=== PATIENT | male | born 1940 | race Caucasian/White ===

== ENCOUNTER 2020-02-16 10:41 | Observation (INO) | payer MEDICARE, BC ==
[2020-02-16 11:53] LABS: ABSOLUTE EOSINOPHILS # (AUTO) 0.1 10^3/uL (0.0-0.6); ABSOLUTE LYMPHOCYTES (AUTO) 0.7 10^3/uL (0.5-4.7); ABSOLUTE MONOCYTES (AUTO) 0.6 10^3/uL (0.1-1.4); ABSOLUTE NEUT (AUTO) 7.4 10^3/uL (1.7-8.2); BASOPHILS % (AUTO) 0.5 % (0-2); EOSINOPHILS % (AUTO) 0.6 % (0-6); HEMATOCRIT 38.6 % (37.9-51.0); HEMOGLOBIN 13.2 g/dL (13.5-17.0); LYMPHOCYTES % (AUTO) 8.4 % (13-45); MEAN CORPUSCULAR HEMOGLOBIN 32.9 pg (27.0-33.4); MEAN CORPUSCULAR HGB CONC 34.1 g/dL (32.0-36.0); MEAN CORPUSCULAR VOLUME 97 fl (80-97); MONOCYTES % (AUTO) 6.7 % (3-13); PLATELET COUNT 167 10^3/uL (150-450); RED CELL DISTRIBUTION WIDTH 13.8 % (11.5-14.0); SEGMENTED NEUTROPHILS % (AUTO) 83.8 % (42-78); TOTAL CELLS COUNTED % (AUTO) 100 %; WHITE BLOOD COUNT 8.8 10^3/uL (4.0-10.5)
[2020-02-16 11:57] LABS: ALBUMIN 3.6 g/dL (3.5-5.0); ALKALINE PHOSPHATASE 54 U/L (38-126); ANION GAP 13 (5-19); ASPARTATE AMINO TRANSFERASE 36 U/L (17-59); BILIRUBIN,DIRECT 0.4 mg/dL (0.0-0.4); BILIRUBIN,TOTAL 1.1 mg/dL (0.2-1.3); BLOOD UREA NITROGEN 13 mg/dL (7-20); CARBON DIOXIDE 20 mmol/L (22-30); CHLORIDE 107 mmol/L (98-107); GLUCOSE 129 mg/dL (75-110); POTASSIUM 3.6 mmol/L (3.6-5.0); TOTAL PROTEIN 6.1 g/dL (6.3-8.2)
--- NOTE | 2020-02-16 12:17 | ER Document Report ---
ED General - General Chief Complaint: Seizure Stated Complaint: ALTERED MENTAL STATUS Time Seen by Provider: 02/16/20 11:48 - HPI Onset: Just prior to arrival Notes: Patient is an 79-year-old male with a past medical history of dementia who presents with an episode of altered mental status. Patient is here with his who is also his caregiver. provides the history. She states that he has had episodes of seizure-like activity for several months. He has them daily. They last under 5 minutes. He has seen a neurologist in [facility] and has had a MRI and EEG. They are attributing these episodes to dementia and not seizures. He is not on any seizure medication. Patient's states that he felt fine yesterday and was in his normal state of health. Today, she was getting ready for work and he was sitting on the edge of the bathtub. She states that he was acting strange and confused about putting on his pants. He then became agitated and fell backwards and hit his head on the table. He then had less than 5 minutes of bilateral shaking. EMS was called. Patient was combative after this so they gave him Ativan. Currently, patient is resting but responds to painful stimuli. - Related Data Allergies/Adverse Reactions: No Known Allergies Allergy (Unverified 02/16/20 12:13) Past Medical History - General Information source: Relative - Social History Smoking Status: Unknown if Ever Smoked Family History: Reviewed & Not Pertinent Patient has homicidal ideation: No Review of Systems - Review of Systems -: Yes ROS unobtainable due to patient's medical condition Physical Exam - Vital signs Vitals: Resp 12 02/16/20 10:45 - Notes Notes: VITAL SIGNS: Within normal limits. GENERAL: No acute distress, non-toxic appearance. Sedated vs post-ictal on exam but is arousable to painful stimuli. HEAD: Ecchymosis and slight abrasion on posterior head. No laceration. No bleeding. EYES: Conjunctiva normal, no discharge. EARS: Hearing grossly intact. NOSE: Normal. NECK: Normal range of motion, no tenderness, supple, no lymphadenopathy, No adenopathy, no JVD. CHEST: Clear breath sounds bilaterally. No wheezes, rales, or rhonchi. CARDIAC: Regular rate and rhythm. S1 and S2, without murmurs, gallops, or rubs. VASCULAR: No Edema. Peripheral pulses normal and equal in all extremities. ABDOMEN: Normal and soft with no tenderness GENITOURINARY: Normal, No tenderness LYMPATHTIC: No lymphadenopathy noted. MUSCULOSKELETAL: Extremities without clubbing, cyanosis or edema. NEUROLOGICAL: Post-ictal vs sedation from ativan SKIN: Normal appearance with no rashes or lesions. Course - Re-evaluation Re-evalutation: 02/16/20 18:[address] head and cervical spine are unremarkable. His lab work was also reviewed. This episode was slightly different than his usual episodes of shaking. He has already been worked up for seizures by neurology. Patient continues to be fatigued on exam but more responsive. He has not been his baseline mental status per the since the episode. I did offer admission and she was in agreement. Patient will be admitted to the hospitalist floor. - Vital Signs Vital signs: Temp Pulse Resp BP Pulse Ox 98.5 F 22 H 167/60 H 98 02/16/20 10:55 02/16/20 18:00 02/16/20 13:04 02/16/20 18:00 - Laboratory Result Diagrams: 02/16/20 10:52 02/16/20 10:52 Laboratory results interpreted by me: 02/16/20 02/16/20 10:52 10:52 RBC 4.00 L Hgb 13.2 L Lymph % (Auto) 8.4 L Seg Neutrophils % 83.8 H Carbon Dioxide 20 L Glucose 129 H Total Protein 6.1 L - Diagnostic Test Radiology reviewed: Image reviewed - EKG Interpretation by Me EKG shows normal: Sinus rhythm Rate: Normal When compared to previous EKG there are: Previous EKG unavailable Additional EKG results interpreted by me: 02/16/20 16:47 EKG interpreted by me. QTc 502. Apparent complex. Ventricular bigeminy. No acute ST changes. Discharge - Discharge Clinical Impression: Altered mental status Qualifiers: Altered mental status type: unspecified Qualified Code(s): R41.82 - Altered mental status, unspecified Disposition: ADMITTED INPATIENT Admitting Provider: Kassandra (Hospitalist) Unit Admitted: [facility]
--- NOTE | 2020-02-16 12:52 | RADIOLOGY REPORT (SQ) ---
EXAM DESCRIPTION: CT HEAD WITHOUT IMAGES COMPLETED DATE/TIME: 02/16/2020 12:44 pm REASON FOR STUDY: AMS, Seizure, hit posterior aspect of head COMPARISON: None. TECHNIQUE: Axial images acquired through the brain without intravenous contrast. Images reviewed wi th bone, brain and subdural windows. Additional sagittal and coronal reconstructions were generated. Images stored on PACS. All CT scanners at this facility use dose modulation, iterative reconstruction, and/or weight based d osing when appropriate to reduce radiation dose to as low as reasonably achievable (ALARA). [facility]: Dose Right [facility]: CareDose [facility]: Dose Right [facility]: Teradose 4D [facility]: Drybar RADIATION DOSE: CT Rad equipment meets quality standard of care and radiation dose reduction techniq ues were employed. CTDIvol: 53.2 mGy. DLP: 1070 mGy-cm. mGy. LIMITATIONS: None. FINDINGS: VENTRICLES: Prominent. CEREBRUM: No masses. No hemorrhage. No midline shift. Areas of low density in the white matter mos t likely due to chronic micro-vascular ischemic change. No evidence for acute infarction. CEREBELLUM: No masses. No hemorrhage. No alteration of density. No evidence for acute infarction. EXTRAAXIAL SPACES: Mild age-related involutional change. No fluid collections. No masses. ORBITS AND GLOBE: No intra- or extraconal masses. Normal contour of globe without masses. CALVARIUM: No fracture. PARANASAL SINUSES: No fluid or mucosal thickening. SOFT TISSUES: No mass or hematoma. OTHER: No other significant finding. IMPRESSION: MILD CHRONIC CHANGES OF ATROPHY AND MICROVASCULAR ISCHEMIA. NO ACUTE PROCESS. EVIDENCE OF ACUTE STROKE: NO. TECHNICAL DOCUMENTATION: JOB ID: [id number] Quality ID # [id number]: Final reports with documentation of one or more dose reduction techniques (e.g., Au tomated exposure control, adjustment of the mA and/or kV according to patient size, use of iterative reconstruction technique) 2010 [employer]- All Rights Reserved Reading location - IP/workstation name: [email or web address]
--- NOTE | 2020-02-16 12:55 | RADIOLOGY REPORT (SQ) ---
EXAM DESCRIPTION: CT CERVICAL SPINE WITHOUT IMAGES COMPLETED DATE/TIME: 02/16/2020 12:44 pm REASON FOR STUDY: head injury COMPARISON: None. TECHNIQUE: Axial images acquired through the cervical spine without intravenous contrast. Images re viewed with lung, soft tissue and bone windows. Reconstructed coronal and sagittal MPR images review ed. Images stored on PACS. All CT scanners at this facility use dose modulation, iterative reconstruction, and/or weight based d osing when appropriate to reduce radiation dose to as low as reasonably achievable (ALARA). [facility]: Dose Right [facility]: CareDose [facility]: Dose Right [facility]: Teradose 4D [facility]: [employer] RADIATION DOSE: CT Rad equipment meets quality standard of care and radiation dose reduction techniq ues were employed. CTDIvol: 19.3 mGy. DLP: 374 mGy-cm. mGy. LIMITATIONS: None. FINDINGS: ALIGNMENT: Anatomic. MINERALIZATION: Normal. VERTEBRAL BODIES: No fractures or dislocation. DISCS: There is disc space narrowing from C4-C7. No significant marginal osteophytes are present. FACETS, LATERAL MASSES, POSTERIOR ELEMENTS: Hypertrophic facet changes, left more than right. HARDWARE: None in the spine. VISUALIZED RIBS: No fractures. LUNG APICES AND SOFT TISSUES: No significant or acute findings. OTHER: No other significant finding. IMPRESSION: Degenerative disc disease. Facet arthropathy. No acute finding. TECHNICAL DOCUMENTATION: JOB ID: [id number] Quality ID # [id number]: Final reports with documentation of one or more dose reduction techniques (e.g., Au tomated exposure control, adjustment of the mA and/or kV according to patient size, use of iterative reconstruction technique) 2010 [employer]- All Rights Reserved Reading location - IP/workstation name: [email or web address]
[2020-02-16] MEDS ORDERED: NORMAL SALINE 1000 ML 1,000 ML IV ONE (14:56)
--- NOTE | 2020-02-16 15:22 | RADIOLOGY REPORT (SQ) ---
EXAM DESCRIPTION: CHEST SINGLE VIEW IMAGES COMPLETED DATE/TIME: 02/16/2020 3:14 pm REASON FOR STUDY: AMS COMPARISON: None. EXAM PARAMETERS: NUMBER OF VIEWS: One view. TECHNIQUE: Single frontal radiographic view of the chest acquired. RADIATION DOSE: NA LIMITATIONS: Low lung volumes. FINDINGS: LUNGS AND PLEURA: Left basilar atelectasis. Findings are accentuated by low lung volumes. No pneumothorax. No effusions. MEDIASTINUM AND HILAR STRUCTURES: No masses. Contour normal. HEART AND VASCULAR STRUCTURES: Mild cardiac enlargement. No overt failure. BONES: No acute findings. HARDWARE: None in the chest. OTHER: No other significant finding. IMPRESSION: Left basilar atelectasis. No focal consolidation or failure. TECHNICAL DOCUMENTATION: JOB ID: [id number] 2010 [employer]- All Rights Reserved Reading location - IP/workstation name: [email or web address]
[2020-02-16] MEDS ORDERED: ONDANSETRON HCL INJ/PF 4 MG/2 ML SDV IV PRN (16:39)
[2020-02-16] MEDS ORDERED: OXYCODONE-ACETAMINOPHEN 5-325 MG TABLET PO PRN (16:39)
[2020-02-16] MEDS ORDERED: NORMAL SALINE 1000 ML 1,000 ML IV PRN (16:39)
[2020-02-16] MEDS ORDERED: HYDRALAZINE HCL INJ/PF 20 MG/1 ML SDV IV PRN (16:42)
[2020-02-16] MEDS ORDERED: LORAZEPAM INJ 2 MG/1 ML VIAL IV PRN (16:43)
--- NOTE | 2020-02-16 16:51 | PDOC H&P ---
History of Present Illness Admission Date/PCP: 02/16/2020 Patient complains of: Altered mental status History of Present Illness: OPAL ALEJANDRE JR is a 79 year old male with history of dementia, hypertension brought in by family members for altered mental status. Patient was combative agitated when the EMS picked him up. They gave him 1 mg IV Ativan patient was lethargic less responsive in the ER will repeat a few hours. Patient has questionable history of seizures follows with a neurologist in [place] as per the family EEG is negative for seizure activity, MRI is negative for abn ormality. The impression from the neurologist is seizures are very unlikely and patient has advanced dementia. No seizure activity was noted in the emergency room. At the time of my examination patient is awake and has a difficulty in hearing able to give me his first name and last name. Patient family agreed to keep him in the hospital overnight for observation. CODE STATUS is full code. Past Medical History Cardiac Medical History: Reports: Hypertension Psychiatric Medical History: Reports: Dementia Past Surgical History Past Surgical History: Reports: Other - Multiple surgeries for kidney stones as per the family members. Social History Information Source: Legal Guardian Lives with: Family Smoking Status: Unknown if Ever Smoked Electronic Cigarette use?: No Hx Recreational Drug Use: No Hx Prescription Drug Abuse: No - Advance Directive Resuscitation Status: Full Code Family History Parental Family History Reviewed: Yes - Hypertension Children Family History Reviewed: Yes Sibling(s) Family History Reviewed.: Yes Medication/Allergy Allergies/Adverse Reactions: No Known Allergies Allergy (Unverified 02/16/20 12:13) Review of Systems Constitutional: PRESENT: fatigue, weakness. ABSENT: fever(s), headache(s) Eyes: ABSENT: visual disturbances Ears: ABSENT: hearing changes Nose, Mouth, and Throat: ABSENT: sore throat Cardiovascular: ABSENT: dyspnea on exertion, orthropnea, palpitations Respiratory: ABSENT: dyspnea, hemoptysis Gastrointestinal: ABSENT: coffee ground emesis, diarrhea, heartburn Integumentary: ABSENT: rash, wounds Neurological: PRESENT: abnormal movements, confusion, weakness Psychiatric: PRESENT: anxiety. ABSENT: depression, homidical ideation, suicidal ideation Physical Exam Vital Signs: Temp Pulse Resp BP Pulse Ox 98.5 F 19 167/60 H 98 02/16/20 10:55 02/16/20 13:04 02/16/20 13:04 02/16/20 13:04 Intake & Output 02/15/20 02/16/20 02/17/20 06:59 06:59 06:59 Weight 65 kg General appearance: PRESENT: no acute distress, cooperative - Early male looks confused and agitated., other Head exam: PRESENT: atraumatic Eye exam: PRESENT: conjunctiva pale, PERRLA Mouth exam: PRESENT: moist, tongue midline Teeth exam: PRESENT: poor dentation Neck exam: ABSENT: carotid bruit, JVD, lymphadenopathy, thyromegaly Respiratory exam: PRESENT: decreased breath sounds Cardiovascular exam: PRESENT: RRR. ABSENT: diastolic murmur, rubs, systolic mur mur GI/Abdominal exam: PRESENT: normal bowel sounds, soft. ABSENT: distended, guarding, mass, organolmegaly, rebound, tenderness Rectal exam: PRESENT: deferred Extremities exam: PRESENT: full ROM. ABSENT: calf tenderness, clubbing, pedal edema Neurological exam: PRESENT: alert, awake. ABSENT: motor sensory deficit Psychiatric exam: PRESENT: agitated, anxious Results Laboratory Results: 02/16/20 10:52 02/16/20 10:52 02/16/20 02/16/20 10:52 10:52 WBC 8.8 RBC 4.00 L Hgb 13.2 L Hct 38.6 MCV 97 MCH 32.9 MCHC 34.1 RDW 13.8 Plt Count 167 Seg Neutrophils % 83.8 H Sodium 139.9 Potassium 3.6 Chloride 107 Carbon Dioxide 20 L Anion Gap 13 BUN 13 Creatinine 0.97 Est GFR ( Amer) > 60 Glucose 129 H Calcium 9.0 Total Bilirubin 1.1 AST 36 Alkaline Phosphatase 54 Total Protein 6.1 L Albumin 3.6 02/16/20 02/16/20 10:52 10:52 Creatine Kinase 145 Troponin I 0.032 Impressions: Head CT 02/16/20 00:00 IMPRESSION: MILD CHRONIC CHANGES OF ATROPHY AND MICROVASCULAR ISCHEMIA. NO ACUTE PROCESS. EVIDENCE OF ACUTE STROKE: NO. Cervical Spine CT 02/16/20 12:09 IMPRESSION: Degenerative disc disease. Facet arthropathy. No acute finding. Chest X-Ray 02/16/20 14:26 IMPRESSION: Left basilar atelectasis. No focal consolidation or failure. Assessment and Plan - Diagnosis (1) Altered mental status Is this a current diagnosis for this admission?: Yes Plan: 02/16/2020-patient is going to be admitted to [facility] with a diagnosis of altered mental status. Admitted in stage W observation. Aspiration fall seizure precautions requested. To restart his home medications. GI prophylaxis DVT prophylaxis initiated. CT head is negative, chest x-ray is normal, cervical spine x-ray is normal. (2) Dementia Is this a current diagnosis for this admission?: No Plan: 02/22/2020-patient has history of advanced dementia. Follows with a neurologist in [place]. Started on Aricept 5 mg p.o. nightly. (3) HTN (hypertension) Is this a current diagnosis for this admission?: No Plan: 02/16/2020-patient has history of chronic essential hypertension. Blood p ressures are stable in the emergency room. Started on IV hydralazine 10 mg every 6 hours as needed for systolic blood pressure less than 170. - Time Anticipated Discharge Disposition: Home, Self Care Anticipated Discharge Timeframe: within 24 hours
--- NOTE | 2020-02-16 19:50 | EKG REPORT ---
SEVERITY:- ABNORMAL ECG - SINUS RHYTHM VENTRICULAR BIGEMINY AND APC ABERRANT COMPLEX, POSSIBLY SUPRAVENTRICULAR BORDERLINE LEFT AXIS DEVIATION BORDERLINE REPOL ABNORMALITY, ANT-LAT LEADS : Confirmed by: Patti Diggs 16-Feb-2020 19:49:42
[2020-02-16 21:28] LABS: APPEARANCE,URINE CLEAR; BILIRUBIN,URINE NEGATIVE (NEGATIVE); COLOR,URINE YELLOW; GLUCOSE, URINE NEGATIVE (NEGATIVE); KETONES,URINE TRACE mg/dL (NEGATIVE); LEUKOCYTE ESTERASE,URINE NEGATIVE (NEGATIVE); NITRITE,URINE NEGATIVE (NEGATIVE); PROTEIN,URINE 100 mg/dL (NEGATIVE); URINE SPECIFIC GRAVITY 1.016; UROBILINOGEN,URINE NEGATIVE mg/dL (<2.0)
[2020-02-16] MEDS ORDERED: DONEPEZIL HCL 5 MG TABLET PO SCH (22:00)
[2020-02-16] MEDS: HEPARIN SOD (PORCINE) 5,000 UNIT/ML 1 ML VIAL SUBCUT SCH (22:39)
[2020-02-16 23:14] LABS: INTERNATIONAL RATION (INR) 1.08; PROTHROMBIN TIME 14.2 SEC (11.4-15.4)
[2020-02-17] MEDS ORDERED: HALOPERIDOL LACTATE INJ 5 MG/1 ML VIAL ONE (02:05)
[2020-02-17 04:33] LABS: ALBUMIN 3.5 g/dL (3.5-5.0); ALKALINE PHOSPHATASE 71 U/L (38-126); ASPARTATE AMINO TRANSFERASE 46 U/L (17-59); BILIRUBIN,DIRECT 0.3 mg/dL (0.0-0.4); BILIRUBIN,TOTAL 1.5 mg/dL (0.2-1.3); BLOOD UREA NITROGEN 10 mg/dL (7-20); CALCIUM 8.9 mg/dL (8.4-10.2); CARBON DIOXIDE 21 mmol/L (22-30); CHLORIDE 104 mmol/L (98-107); GLUCOSE 110 mg/dL (75-110); TOTAL PROTEIN 5.8 g/dL (6.3-8.2)
[2020-02-17 04:43] LABS: PROTHROMBIN TIME 14.5 SEC (11.4-15.4)
[2020-02-17 04:44] LABS: DIRECT LDL 59 mg/dL (<100)
[2020-02-17 04:47] LABS: ANION GAP 13 (5-19); TRIGLYCERIDES 95 mg/dL (<150)
[2020-02-17 04:59] LABS: POTASSIUM 2.9 mmol/L (3.6-5.0)
[2020-02-17] MEDS: HEPARIN SOD (PORCINE) 5,000 UNIT/ML 1 ML VIAL SUBCUT SCH (05:45)
[2020-02-17 05:58] LABS: ABSOLUTE LYMPHOCYTES (AUTO) 1.5 10^3/uL (0.5-4.7); ABSOLUTE MONOCYTES (AUTO) 1.4 10^3/uL (0.1-1.4); ABSOLUTE NEUT (AUTO) 7.7 10^3/uL (1.7-8.2); BASOPHILS % (AUTO) 0.2 % (0-2); EOSINOPHILS % (AUTO) 0.1 % (0-6); HEMATOCRIT 38.9 % (37.9-51.0); HEMOGLOBIN 13.6 g/dL (13.5-17.0); LYMPHOCYTES % (AUTO) 13.8 % (13-45); MEAN CORPUSCULAR HEMOGLOBIN 32.7 pg (27.0-33.4); MONOCYTES % (AUTO) 13.4 % (3-13); PLATELET COUNT 172 10^3/uL (150-450); RED BLOOD COUNT 4.16 10^6/uL (4.35-5.55); RED CELL DISTRIBUTION WIDTH 13.6 % (11.5-14.0); SEGMENTED NEUTROPHILS % (AUTO) 72.5 % (42-78); TOTAL CELLS COUNTED % (AUTO) 100 %; WHITE BLOOD COUNT 10.7 10^3/uL (4.0-10.5)
[2020-02-17] MEDS ORDERED: HALOPERIDOL LACTATE INJ 5 MG/1 ML VIAL IM ONE (06:00)
[2020-02-17] MEDS ORDERED: PANTOPRAZOLE SODIUM 20 MG TABLET.DR PO SCH (06:00)
[2020-02-17 06:02] LABS: MEAN CORPUSCULAR VOLUME 94 fl (80-97)
[2020-02-17 06:20] LABS: ALBUMIN 3.5 g/dL (3.5-5.0); ALKALINE PHOSPHATASE 64 U/L (38-126); ANION GAP 11 (5-19); ASPARTATE AMINO TRANSFERASE 49 U/L (17-59); BILIRUBIN,DIRECT 0.4 mg/dL (0.0-0.4); BILIRUBIN,TOTAL 1.3 mg/dL (0.2-1.3); BLOOD UREA NITROGEN 9 mg/dL (7-20); CALCIUM 9.2 mg/dL (8.4-10.2); CARBON DIOXIDE 20 mmol/L (22-30); CHLORIDE 107 mmol/L (98-107); GLUCOSE 104 mg/dL (75-110); POTASSIUM 3.1 mmol/L (3.6-5.0)
[2020-02-17] MEDS ORDERED: POTASSIUM CHLORIDE 10 MEQ TABLET.ER PO ONE (08:09)
[2020-02-17] MEDS ORDERED: HYDRALAZINE HCL INJ/PF 20 MG/1 ML SDV IV PRN (08:53)
[2020-02-17] MEDS ORDERED: PROPRANOLOL HCL 20 MG TABLET PO SCH ×2 (10:00)
[2020-02-17] MEDS ORDERED: SERTRALINE HCL 50 MG TABLET PO SCH (10:00)
[2020-02-17] MEDS ORDERED: BUSPIRONE HCL 10 MG TABLET PO SCH ×2 (10:00)
[2020-02-17] MEDS ORDERED: (PENDING PHARMACY ID) (Donepezil Hcl [Donepezil Hcl] 10 MG) PO SCH (10:00)
[2020-02-17] MEDS ORDERED: LISINOPRIL 5 MG TABLET PO SCH (10:00)
[2020-02-17] MEDS ORDERED: POTASSIUM CHLORIDE 10 MEQ TABLET.ER PO SCH (10:00)
[2020-02-17] MEDS ORDERED: TAMSULOSIN HCL 0.4 MG CAP.SR.24H PO SCH (10:00)
[2020-02-17] MEDS ORDERED: HYDROXYZINE HCL 10 MG TABLET PO SCH (10:00)
[2020-02-17] MEDS ORDERED: (PENDING PHARMACY ID) (Buspirone Hcl [Buspirone Hcl] 1 TAB) PO SCH (10:00)
[2020-02-17] MEDS ORDERED: DONEPEZIL HCL 5 MG TABLET PO SCH (10:00)
--- NOTE | 2020-02-17 10:00 | PDOC DISCHARGE SUMMARY ---
Impression - Admit/DC Date/PCP Admission Date/Primary Care Provider: 02/16/20 16:39 Discharge Date: 02/17/20 - Discharge Diagnosis (1) Altered mental status Is this a current diagnosis for this admission?: Yes (2) Dementia Is this a current diagnosis for this admission?: Yes (3) HTN (hypertension) Is this a current diagnosis for this admission?: Yes - Additional Information Resuscitation Status: Full Code Discharge Diet: Cardiac Discharge Activity: Balance Activity w/Rest Prescriptions: Lisinopril [Prinivil 5 mg Tablet] 5 mg PO DAILY #30 tablet Home Medications: Atorvastatin Calcium [Lipitor 40 mg Tablet] 40 mg PO QHS 02/16/20 Donepezil HCl 10 mg PO DAILY 02/16/20 Hydroxyzine HCl [Atarax 10 mg Tablet] 10 mg PO TID PRN 02/16/20 Potassium Chloride 20 meq PO DAILY 02/16/20 Propranolol HCl [Inderal 20 mg Tablet] 20 mg PO Q12 02/16/20 Sertraline HCl 100 mg PO DAILY 02/16/20 Tamsulosin HCl [Flomax 0.4 mg Cap.sr] 0.4 mg PO DAILY 02/16/20 Buspirone HCl 1 tab PO BID #0 02/17/20 Lisinopril [Prinivil 5 mg Tablet] 5 mg PO DAILY #30 tablet 02/17/20 History of Present Illiness History of Present Illness: OPAL ALEJANDRE JR is a 79 year old male with history of dementia, hypertension brought in by family members for altered mental status. Patient was combative agitated when the EMS picked him up. They gave him 1 mg IV Ativan patient was lethargic less responsive in the ER will repeat a few hours. Patient has questionable history of seizures follows with a neurologist in [place] as per the family EEG is negative for seizure activity, MRI is negative for abnormality. The impression from the neurologist is seizures are very unlikely and patient has advanced dementia. No seizure activity was noted in the emerge ncy room. At the time of my examination patient is awake and has a difficulty in hearing able to give me his first name and last name. Patient family agreed to keep him in the hospital overnight for observation. CODE STATUS is full code. Hospital Course Hospital Course: Unremarkable hospital course. Patient sleepy this morning. Seen by physical therapy. Walked 90 feet with contact-guard assist using a walker. Spoke to the patient's . He tends to get upset over not with her. We discussed the situation and as is common for dementia patients it is likely more benefit to have him home in his home situation where he is comfortable as opposed to additional nights in the hospital. Physical Exam Vital Signs: Temp Pulse Resp BP Pulse Ox 98.9 F 56 L 23 H 160/59 H 91 L 02/17/20 07:40 02/17/20 07:40 02/17/20 08:00 02/17/20 07:40 02/17/20 07:40 Intake & Output 02/16/20 02/17/20 02/18/20 06:59 06:59 06:59 Intake Total 1000 Output Total 200 Balance 800 Weight 66.1 kg General appearance: PRESENT: no acute distress, hard of hearing, well-developed Head exam: PRESENT: atraumatic, normocephalic Respiratory exam: PRESENT: clear to auscultation edmundo, symmetrical, unlabored. ABSENT: rales, rhonchi, tachypnea, wheezes Cardiovascular exam: PRESENT: RRR, +S1, +S2, systolic murmur - 3/6. ABSENT: bradycardia, diastolic murmur, irregular rhythm, tachycardia GI/Abdominal exam: PRESENT: normal bowel sounds, soft. ABSENT: distended, guarding, tenderness Rectal exam: PRESENT: deferred Gentrourinary exam: ABSENT: indwelling catheter Extremities exam: ABSENT: calf tenderness, joint swelling, pedal edema Musculoskeletal exam: PRESENT: ambulatory, normal inspection. ABSENT: deformity, dislocation Neurological exam: PRESENT: alert, awake, oriented to person, oriented to place Psychiatric exam: PRESENT: flat affect. ABSENT: agitated, anxious Results Laboratory Results: WBC 10.7 10^3/uL (4.0-10.5) H 02/17/20 05:13 RBC 4.16 10^6/uL (4.35-5.55) L 02/17/20 05:13 Hgb 13.6 g/dL (13.5-17.0) 02/17/20 05:13 Hct 38.9 % (37.9-51.0) 02/17/20 05:13 MCV 94 fl (80-97) 02/17/20 05:13 MCH 32.7 pg (27.0-33.4) 02/17/20 05:13 MCHC 35.0 g/dL (32.0-36.0) 02/17/20 05:13 RDW 13.6 % (11.5-14.0) 02/17/20 05:13 Plt Count 172 10^3/uL (150-450) 02/17/20 05:13 Lymph % (Auto) 13.8 % (13-45) 02/17/20 05:13 [place] % (Auto) 13.4 % (3-13) H 02/17/20 05:13 Eos % (Auto) 0.1 % (0-6) 02/17/20 05:13 Baso % (Auto) 0.2 % (0-2) 02/17/20 05:13 Absolute Neuts (auto) 7.7 10^3/uL (1.7-8.2) 02/17/20 05:13 Absolute Lymphs (auto) 1.5 10^3/uL (0.5-4.7) 02/17/20 05:13 Absolute Monos (auto) 1.4 10^3/uL (0.1-1.4) 02/17/20 05:13 Absolute Eos (auto) 0.0 10^3/uL (0.0-0.6) 02/17/20 05:13 Absolute Basos (auto) 0.0 10^3/uL (0.0-0.2) 02/17/20 05:13 Seg Neutrophils % 72.5 % (42-78) 02/17/20 05:13 Platelet Estimate Cancelled 02/17/20 04:07 PT 14.5 SEC (11.4-15.4) 02/17/20 04:07 INR 1.10 02/17/20 04:07 Sodium 137.5 mmol/L (137-145) 02/17/20 05:13 Potassium 3.1 mmol/L (3.6-5.0) L 02/17/20 05:13 Chloride 107 mmol/L (98-107) 02/17/20 05:13 Carbon Dioxide 20 mmol/L (22-30) L 02/17/20 05:13 Anion Gap 11 (5-19) 02/17/20 05:13 BUN 9 mg/dL (7-20) 02/17/20 05:13 Creatinine 0.80 mg/dL (0.52-1.25) 02/17/20 05:13 Est GFR ( Amer) > 60 (>60) 02/17/20 05:13 Est GFR (MDRD) Non-Af > 60 (>60) 02/17/20 05:13 Glucose 104 mg/dL (75-110) 02/17/20 05:13 Hemoglobin A1c % 5.0 % (4.7-6.0) 02/17/20 04:07 Calcium 9.2 mg/dL (8.4-10.2) 02/17/20 05:13 Magnesium 1.7 mg/dL (1.6-2.3) 02/17/20 04:07 Total Bilirubin 1.3 mg/dL (0.2-1.3) 02/17/20 05:13 Direct Bilirubin 0.4 mg/dL (0.0-0.4) 02/17/20 05:13 Neonat Total Bilirubin Not Reportable 02/17/20 05:13 Neonat Direct Bilirubin Not Reportable 02/17/20 05:13 Neonat Indirect Bili Not Reportable 02/17/20 05:13 AST 49 U/L (17-59) 02/17/20 05:13 ALT 31 U/L (<50) 02/17/20 05:13 Alkaline Phosphatase 64 U/L (38-126) 02/17/20 05:13 Creatine Kinase 145 U/L (55-170) 02/16/20 10:52 Troponin I 0.032 ng/mL 02/16/20 10:52 Total Protein 6.0 g/dL (6.3-8.2) L 02/17/20 05:13 Albumin 3.5 g/dL (3.5-5.0) 02/17/20 05:13 Triglycerides 95 mg/dL (<150) 02/17/20 04:07 Cholesterol 137.50 mg/dL (0-200) 02/17/20 04:07 LDL Cholesterol Direct 59 mg/dL (<100) 02/17/20 04:07 VLDL Cholesterol 19.0 mg/dL (10-31) 02/17/20 04:07 HDL Cholesterol 66 mg/dL (>40) 02/17/20 04:07 Lipase 82.8 U/L (23-300) 02/17/20 04:07 TSH 3.27 uIU/mL (0.47-4.68) 02/17/20 04:07 Urine Color YELLOW 02/16/20 15:42 Urine Appearance CLEAR 02/16/20 15:42 Urine pH 6.0 (5.0-9.0) 02/16/20 15:42 Ur Specific [place] 1.016 02/16/20 15:42 Urine Protein 100 mg/dL (NEGATIVE) H 02/16/20 15:42 Urine Glucose (UA) NEGATIVE mg/dL (NEGATIVE) 02/16/20 15:42 Urine Ketones TRACE mg/dL (NEGATIVE) H 02/16/20 15:42 Urine Blood SMALL (NEGATIVE) H 02/16/20 15:42 Urine Nitrite NEGATIVE (NEGATIVE) 02/16/20 15:42 Urine Bilirubin NEGATIVE (NEGATIVE) 02/16/20 15:42 Urine Urobilinogen NEGATIVE mg/dL (<2.0) 02/16/20 15:42 Ur Leukocyte Esterase NEGATIVE (NEGATIVE) 02/16/20 15:42 Urine WBC (Auto) 1 /HPF 02/16/20 15:42 Urine RBC (Auto) 4 /HPF 02/16/20 15:42 Urine Mucus (Auto) OCC /LPF 02/16/20 15:42 Urine Ascorbic Acid NEGATIVE (NEGATIVE) 02/16/20 15:42 Slides for Path Review Cancelled 02/17/20 04:07 02/16/20 10:52 Troponin I 0.032 Impressions: Head CT 02/16/20 00:00 IMPRESSION: MILD CHRONIC CHANGES OF ATROPHY AND MICROVASCULAR ISCHEMIA. NO ACUTE PROCESS. EVIDENCE OF ACUTE STROKE: NO. Cervical Spine CT 02/16/20 12:09 IMPRESSION: Degenerative disc disease. Facet arthropathy. No acute finding. Chest X-Ray 02/16/20 14:26 IMPRESSION: Left basilar atelectasis. No focal consolidation or failure. Plan Health Concerns: Episodes of shaking possibly related to anxiety with underlying dementia. Possibly triggered by frustration at times. Plan of Treatment: Add BuSpar 5 mg twice daily to the regimen of Atarax 10 mg 3 times a day, sertraline 100 mg daily and Aricept 10 mg daily. Resume potassium chloride for hypokalemia Resume atenolol and add lisinopril 5 mg daily for hypertension. Goals: Improved blood pressure control. Further characterization and better control of shaking episodes. Time Spent: Greater than 30 Minutes Stroke Is this a Stroke Patient?: No Acute Heart Failure Is this a Heart Failure Patient?: No
[2020-02-17 12:24] VITALS: BP 140/50
--- NOTE | 2020-02-17 19:46 | EKG REPORT ---
SEVERITY:- ABNORMAL ECG - SINUS RHYTHM BORDERLINE LEFT AXIS DEVIATION REPOL ABNRM SUGGESTS ISCHEMIA, DIFFUSE LEADS : Confirmed by: Patti Diggs 17-Feb-2020 19:45:37
[2020-02-17] MEDS ORDERED: ATORVASTATIN CALCIUM 40 MG TABLET PO SCH (22:00)
== END 2020-02-17 14:29 | disposition home or self-care (01) ==
LOC: ER 10:41 → EH 16:39 → ICU 23:12
PROVIDERS: ADMIT Internal Medicine; ATTEND Hospitalist
DX: R41.82 Altered mental status, unspecified (principal); F03.90 Unspecified dementia, unspecified severity, without behavioral disturbance, psychotic disturbance, mood disturbance, and anxiety; I10 Essential (primary) hypertension; E87.6 Hypokalemia; F41.9 Anxiety disorder, unspecified; R45.1 Restlessness and agitation; M50.30 Other cervical disc degeneration, unspecified cervical region; J98.11 Atelectasis; Z79.899 Other long term (current) drug therapy
CPT/HCPCS: 93005 ×2; 99285; 96360; 96361; 36415 ×2; 87086; 82550; 83690; 83735; 84443; 85025 ×2; 85610 ×2; 87070; 80053 ×2; 81001; 84484; 83036; 80061; 71045; 70450; 72125; 93010 ×2; 97116; 97162; G0378 ×3; J1644 ×2; A9270 ×7; J1630; J0360; J2060; J7030; J3490